=== PATIENT | female | born 1965 | race Caucasian/White ===

== ENCOUNTER 2020-01-12 12:08 | Emergency (ER) | payer OTHER ==
[~2020-01-12] VITALS: Ht 147.3 cm; Wt 90.7 kg
[2020-01-12 12:22] VITALS: Ht 147.3 cm; Wt 90.7 kg
[2020-01-12 14:11] VITALS: BP 144/83
== END 2020-01-12 14:11 | disposition home or self-care (01) ==
LOC: ED 12:08
DX: S62.616A Displaced fracture of proximal phalanx of right little finger, initial encounter for closed fracture (principal); D16.11 Benign neoplasm of short bones of right upper limb; X58.XXXA Exposure to other specified factors, initial encounter; Y93.89 Activity, other specified; Y92.89 Other specified places as the place of occurrence of the external cause; Y99.8 Other external cause status
CPT/HCPCS: Q0092